=== PATIENT | female | born 1970 | race Caucasian/White ===

== ENCOUNTER 2019-09-10 12:56 | Inpatient (IN) | payer OTHER ==
[~2019-09-10] VITALS: Ht 152.4 cm; Wt 90.4 kg
--- NOTE | ~2019-09-10 | OR ---
[facility] [address] [place], [place] [address] Draft DATE OF OPERATION: 09/11/2019 SURGEON: Vic Ramirez MD PREOPERATIVE DIAGNOSES: 1. Intractable nausea and vomiting. 2. Acute cholecystitis. 3. Obesity and coincident persistent sinus bradycardia. POSTOPERATIVE DIAGNOSIS: Acalculous cholecystitis with severely hydropic gallbladder with extensive edema. PROCEDURES: 1. Laparoscopic cholecystectomy with intraoperative cholangiogram. 2. Surgeon-directed fluoroscopy. ANESTHESIA: General endotracheal; Vic Reynoso CRNA, and local 10 mL of 0.25% Marcaine with epinephrine. INDICATION: This 49-year-old obese white woman presented to the emergency room yesterday with intractable nausea and vomiting and some subcostal epigastric pain. She was thoroughly evaluated by Dr. Olmedo. The administration of antiemetic and opiates caused her to be bradycardic with a heart rate down to the 30s, largely related to her intractable retching. Ultimately, this was controlled, but her heart rate remains in the mid 40s and sinus bradycardia. A gallbladder ultrasound was performed showing no specific abnormality followed by a CT scan, which showed possible large gallstone in the gallbladder. Repeat ultrasound with a different unit continued to show no sign of gallstone, but she does clinically have acute cholecystitis manifest by pain and intractable nausea and vomiting. She has been fluid resuscitated, given intravenous antibiotics, parenteral pain medication, antiemetics, and so forth and is now to undergo cholecystectomy preferred by laparoscopic approach. Review of her bradycardic findings shows no evidence of coronary ischemia based on two separate troponin levels as well as a 12-lead EKG. Telemetry since yesterday has shown variable heart rate between 40 and 60, decreased in amount when retching or nauseated of course. PATIENT NAME: ZANA GARCIA OPERATIVE REPORT DATE OF : 70 REPORT #: [id number] PHYSICIAN: VIC RAMIREZ MD PCP: ISMAEL BOUCHER MD REPORT IS CONFIDENTIAL AND NOT TO BE RELEASED WITHOUT AUTHORIZATION [facility] [address] [place], [place] [address] Draft FINDINGS: The gallbladder was markedly edematous, inflamed, and hydropic. The liver was reasonably normal. By conclusion of operation, there was found to be no gallstone within the gallbladder. Cholangiogram was normal. There is no doubt she had severe acute acalculous cholecystitis. DESCRIPTION OF PROCEDURE: The patient was brought to the operating room, given a general endotracheal anesthetic without incident. Preoperative antibiotic Ancef had been given. Sequential compression device stockings used and heparin subcutaneously administered. The patient was given atropine by the furnace door tender prior to induction, which maintained her heart rate in the 70s to 80s throughout the operation. After satisfactory anesthesia, the abdomen was prepared with a chlorhexidine solution and draped sterilely. An infraumbilical incision was made and entry to the abdomen was undertaken through a very thick abdominal wall pannus. Pneumoperitoneum was achieved to a level of 14 mmHg of carbon dioxide gas. Intraabdominal inspection showed no sign of ascites or carcinomatosis. The gallbladder was quite markedly edematous and distended consistent with hydropic gallbladder. Three additional trocars were placed in usual configuration in the subxiphoid, right midclavicular, and right anterior axillary line. The gallbladder was elevated cephalad. Consideration was made for decompression of the gallbladder, but it was not required by the end. Using meticulous blunt electrocautery dissection, the triangle of STEVENSON dissected free ultimately identifying well the cystic duct itself. This was moderate to large in size. A clip was applied to the gallbladder cystic duct junction and a transverse choledochotomy made in the cystic duct. Retrograde milking of the duct showed some thickened bile, but no sign of stone or stone debris. Using an Rai-type cholangiocatheter, intraoperative cholangiography was undertaken showing free flow of contrast in biliary tree with prompt emptying into the duodenum. There was no sign of filling defect or other abnormality. The cystic duct was triply clipped and divided. The gallbladder was dissected free in a retrograde fashion using electrocautery. The gallbladder was placed in an endobag and extracted through the infraumbilical port site without problem, opened on the back table and found to have reasonably normal bile. No evidence of large stone and chronic and subacute inflammation mucosa itself. There was no sign of neoplasm. Irrigation was undertaken in subhepatic space. There was no sign of bile leak, bleeding, or other problems. The trocars were removed under direct visualization showing no bleeding. The infraumbilical incision was reapproximated in the fascial layer with interrupted 0 Vicryl suture, additionally secured with running 0 PDS suture. All wounds were copiously irrigated with saline solution. Skin closed with interrupted 3-0 Vicryl. Steri-Strips were applied. The patient was ultimately extubated and transferred to PATIENT NAME: ZANA GARCIA OPERATIVE REPORT DATE OF : 70 REPORT #: [id number] PHYSICIAN: VIC RAMIREZ MD PCP: ISMAEL BOUCHER MD REPORT IS CONFIDENTIAL AND NOT TO BE RELEASED WITHOUT AUTHORIZATION [address] [address] Draft recovery room in good condition having suffered no complication. Sponge, needle, and instrument counts were reported as correct x3. MD DRE Kaiser/ANGELOL /[id number] cc: MD Ismael Wilkerson MD William S. Powell, MD Copies: MURRAY SOLIZ MD, WILLIAM S MD ~ PATIENT NAME: ZANA GARCIA OPERATIVE REPORT DATE OF : 70 REPORT #: [id number] PHYSICIAN: VIC RAMIREZ MD PCP: ISMAEL BOUCHER MD REPORT IS CONFIDENTIAL AND NOT TO BE RELEASED WITHOUT AUTHORIZATION
[2019-09-10] MEDS ORDERED: CELEXA10 MG PO (13:13)
[2019-09-10] MEDS ORDERED: VITAMIN D33000 UNIT PO (13:14)
[2019-09-10] MEDS ORDERED: VITAMIN B122500 MCG PO (13:14)
--- NOTE | 2019-09-10 14:43 | EKG ---
[facility] [address] [facility] [place], [place] [address] Signed Sinus bradycardia with sinus arrhythmia Otherwise normal ECG No previous ECGs available Confirmed by SUN NINO MD ([id number]) on 09/10/2019 2:43:10 PM Electronically Signed By: SUN NINO MD 09/10/19 1443 PATIENT NAME: ZANA GARCIA Electrocardiogram DATE OF : 70 PHYSICIAN: SUN NINO MD REPORT #: [id number] REPORT IS CONFIDENTIAL AND NOT TO BE RELEASED WITHOUT AUTHORIZATION
--- NOTE | 2019-09-10 20:50 | NUR ---
pt ARRIVES TO MS FLOOR. HR 41. SINUS SHLOMO. ON TELE 6. pt NAUSEOUS, EMESIS X 1. BOWEL TONES ACTIVE. ABD SOFT, TENDER EPIGASTRIC AREA. AFEBRILE. NAUSEA MEDICATION HELD FOR LOW HR, DISCUSSED WITH MASONRY TEACHER RN IN ROOM AND DEAN FOR [facility]. pt EDUCATION PROVIDED. IVF BOLUS INFUSING WNL ORDERED. CALL LIGHT IN REACH. NO REQUESTS AT THIS TIME.
--- NOTE | 2019-09-10 22:26 | NUR ---
pt SLEEPING, AWAKENS TO VOICE FOR SCHEDULED MEDICATION ADMINISTRATION. IVF BOLUS COMPLETE. IVF INFUSING WNL ORDERED. SCDS PLACED ON pt. pt STATES "I FEEL A LITTLE BETTER". DENIES PAIN. MINIMAL NAUSEA. CALL LIGHT IN REACH. DENIES TOILETING NEEDS AT THIS TIME.
--- NOTE | 2019-09-11 00:39 | NUR ---
CHECKED ON pt. APPEARS TO BE SLEEPING. LYING ON LEFT SIDE WITH EYES CLOSED, BREATHING UNLABORED. LIGHTS OFF IN ROOM. SCDS ON.
--- NOTE | 2019-09-11 02:19 | NUR ---
V/S AND I&O TAKEN AND RECORDED BY PRIMARY LUCÍA MAYNARD.
--- NOTE | 2019-09-11 02:21 | NUR ---
pt AWAKE, VSS, HR 51. SINUS BRADYCARDIA ON TELE 6. pt DENIES PAIN. C/O "A LITTLE BIT OF NAUSEA". ASSESSMENT COMPLETE. BOWEL TONES HYPOACTIVE X 4, ABD SOFT, NON-TENDER W PALPATION. CALL LIGHT IN REACH. DENIES TOILETING OR ADDITIONAL NEEDS AT THIS TIME.
--- NOTE | 2019-09-11 02:39 | NUR ---
CALL LIGHT ANSWERED. pt NAUSEOUS, 50 ML GREEN EMESIS. pt PROVIDED WITH MOUTHWASH FOR ORAL CARE. NO ADDITIONAL REQUESTS. SCDS ON. IVF INFUSING WNL ORDERED.
--- NOTE | 2019-09-11 06:37 | NUR ---
pt RESTING IN BED ON LEFT SIDE, EYES CLOSED. AWAKENS TO VOICE, IV ANTIBIOTIC INFUSING WNL ORDERED. NO REQUESTS AT THIS TIME. CALL LIGHT IN REACH.
--- NOTE | 2019-09-11 07:10 | NUR ---
PT RESTING IN SEMIFOWLERS POSITION IN BED ALERT AND ORIENTED AND WATCHING TV. PT DENIES NEEDS OR CONCERNS. CALL LIGHT IN REACH. BEDSIDE REPORT RECEIVED FROM LUCÍA MAYNARD.
--- NOTE | 2019-09-11 08:56 | NUR ---
PT REPORTS NAUSEA AND IS SEEN WRETCHING. DISCUSSED MEDICATION OPTIONS WITH MD IN LIGHT OF PT'S BRADYCARDIA AND PER MD OKAY TO GIVE PHENERGAN SO PRN IV PHENERGAN ADMINISTERED AT THIS TIME ALONG WITH SCHEDULED MEDS. ASSESSMENT THEN COMPLETED ALONG WITH PREPROCEDURE CHECKLIST. PT ALSO PROVIDED CHLORHEXADINE WIPES AND VERBALIZED UNDERSTANDING OF WIPE DOWN INSTRUCTIONS. CALL LIGHT IN REACH. NO FURTHER NEEDS OR CONCERNS VOICED.
--- NOTE | 2019-09-11 09:45 | NUR ---
Spoke with Angie and her SO. They live in [place] with her sister, Jennifer and her father who has alzheimers. Jennifer is caring for father while angie is in the hospital. Pa works at [employer] parttime. Denies use of food bank or [employer]. Pa will have surgery today. Both deny need for any DME as she states she will use her fathers as he has everything. Plans on dc to home when discharged.
--- NOTE | 2019-09-11 10:31 | NUR ---
Pt off floor to OR in care of OR nurse.
--- NOTE | 2019-09-11 11:48 | NUR ---
PT REMAINS OFF OF MEDICAL-SURGICAL FLOOR AT THIS TIME.
--- NOTE | 2019-09-11 12:48 | NUR ---
09/11/19 1248 [place] 1227 PT ARRIVED IN PACU SLEEPY WITH NO C/O'S. 1230 COUGHING AND C/O DRY MOUTH. 1235 PT USING ORAL SWABS PRN. 1240 DR AT BEDSIDE. ALL QUESTIONS ANSWERED.
--- NOTE | 2019-09-11 13:20 | HP ---
[facility] [address] [place], [place] [address] Signed ADMISSION DATE: 09/10/2019 REASON FOR ADMISSION: Intractable upper abdominal pain, nausea, vomiting, and probable acute cholecystitis. HISTORY OF PRESENT ILLNESS: This 49-year-old white woman presented to the emergency room, was evaluated approximately at 1:[address] Saha. She complained with upper abdominal pain and nausea and vomiting that started an hour prior to her presentation. The patient has had numerous episodes of similar type over many years, which she had characterized as "gallbladder attacks." She has undergone evaluation of her gallbladder including ultrasound, which was apparently unremarkable in the past. Her pain is in the upper abdomen, radiating straight through her back with associated nausea and vomiting. Her other medical issues include no active ongoing medical problems otherwise. She is postmenopausal for past 5 years. She is a smoker, does not use alcohol or drugs. SURGICAL HISTORY: Includes hysterectomy in 2015, prior carpal tunnel release, and bunionectomy. ALLERGIES: She has presumed latex allergy. MEDICATIONS: At admission include citalopram (Celexa), vitamin D3, and vitamin B12. REVIEW OF SYSTEMS: She denies any shortness of breath or chest pain. Her pain is mostly in the epigastric and right subcostal area. Her nausea is increasingly controlled now by antiemetics. Of note, in the emergency room, the patient was treated initially with intravenous Dilaudid as well as antiemetics. This caused her to be significantly bradycardic and moderately hypotensive. It is thought by emergency room personnel including Dr. Saha that she was very sensitive to Dilaudid. She has been given Inapsine for her intractable nausea, which is improving. PHYSICAL EXAMINATION: GENERAL: Pleasant white woman, who appears to be in no severe distress at this time. This is an improvement compared to previously apparently. She is no longer retching. She is alert and oriented. HEENT: Mucous membranes are quite dry. Electronically Signed By: VIC RAMIREZ MD 09/11/19 1320 PATIENT NAME: ZANA GARCIA HISTORY AND PHYSICAL DATE OF : 70 REPORT #: [id number] PHYSICIAN: VIC RAMIREZ MD PCP: ATIF BOUCHER MD REPORT IS CONFIDENTIAL AND NOT TO BE RELEASED WITHOUT AUTHORIZATION [facility] [address] [place], [place] [address] Signed NECK: Shows no thyromegaly or cervical adenopathy. She has no sign of jaundice. Neck shows trachea midline. No jugular venous distention. CHEST: Clear. HEART: Regular without murmur. ABDOMEN: Obese. Palpation reveals tenderness in the epigastric and right subcostal area. EXTREMITIES: Show no clubbing, cyanosis, or edema. LABORATORY STUDIES: Showed a white count of 15.5, hematocrit 42.6, and platelets 418,000. Electrolytes normal. Creatinine 0.69. Troponin is less than 0.010. Bilirubin 0.4, AST 16, ALT 13, alkaline phosphatase 84. Ultrasound performed initially at [address] scan was subsequently performed showing suspicion for a large gallstone in the infundibulum. Repeat ultrasound with a different machine fails to show a shadowing gallstone. ASSESSMENT: Probable acute calculous cholecystitis. I have reviewed the CT scan and ultrasound images with the radiologist, Dr. Palomares, as well as the technologist. Clearly, there is no obvious stone on the ultrasound exams and CT scan does show a vague finding suggestive of a gallstone within the gallbladder, which is relatively large. Her clinical history is entirely consistent with acute calculous or acalculous cholecystitis. Notable indeed was her heart rate, which was in the 40s, though blood pressure in 131 range upon my evaluation. She had initially been given Toradol, Dilaudid, and Zofran. She had bradycardia as low as the upper 30s, considered sinus bradycardia on the monitor. Her baseline heart rhythm was low 60s, heart rate normal sinus rhythm. She was given Inapsine with much improvement regarding her intractable nausea. I discussed with her the high probability that her problem represents acute calculous cholecystitis and recommendation of treatment to include cholecystectomy. A laparoscopic approach would be preferred and probably able to be done. An open procedure is still a possibility depending on level of inflammation and so on. Review of the CT scan shows her to have a thick abdominal wall pannus consistent with her clinical examination. At this point, we will admit to the hospital, give IV fluids, parenteral pain medication, IV antibiotics and be mindful of her bradycardic episode related to medications and likely also related to her retching and so forth. Telemetry will be maintained. If her heart rate does not improve much, then consideration will be made for consultation with the hospitalist. She seems to be hemodynamically stable now, Electronically Signed By: VIC RAMIREZ MD 09/11/19 1320 PATIENT NAME: ZANA GARCIA HISTORY AND PHYSICAL DATE OF : 70 REPORT #: [id number] PHYSICIAN: VIC RAMIREZ MD PCP: ATIF BOUCHER MD REPORT IS CONFIDENTIAL AND NOT TO BE RELEASED WITHOUT AUTHORIZATION [address] [address] Signed though her heart rate remains in the 40s. MD DRE Kaiser/MODL /[id number] cc: Ben Saha MD Copies: BEN SAHA MD ~ Electronically Signed By: VIC RAMIREZ MD 09/11/19 1320 PATIENT NAME: ZANA GARCIA HISTORY AND PHYSICAL DATE OF : 70 REPORT #: [id number] PHYSICIAN: VIC RAMIREZ MD PCP: ATIF BOUCHER MD REPORT IS CONFIDENTIAL AND NOT TO BE RELEASED WITHOUT AUTHORIZATION
--- NOTE | 2019-09-11 13:27 | NUR ---
PT BACK TO FLOOR VIA HOSPITAL BED IN CARE OF PIERCING ARTIST. PT ASSESSMENT COMPLETED. VSS. LR INFUSING ORDERED. ICE CHIPS, H2O AND MENUE PROVIDED PER PT REQUEST. PT DENIES NEEDS OR CONCERNS. 4 LAP SITES VISUALIZED, SKIN APPEARS WELL APPROXIMATED WITH STERISTRIPS INTACT AND ONLY VERY SCANT SS DRAINAGE. CALL LIGHT IN REACH. NO FURTHER NEEDS OR CONCERNS VOICED.
--- NOTE | 2019-09-11 14:52 | NUR ---
PT RESTING IN SEMIFOWLERS POSITION IN BED ALERT AND ORIENTED. PT STATES "I'M DOING GREAT I FEEL SO MUCH BETTER" PT WATCHING TV AND IS VISITING WITH FAMILY AT BEDSIDE. CALL LIGHT AND H2O IN REACH.
--- NOTE | 2019-09-11 15:30 | NUR ---
PT RESTING IN SEMIFOWLERS POSITION IN BED ALERT AND ORIENTED. VOICED EAGERNESS TO DISCHARGE TODAY. CALL LIGHT AND H2O IN REACH. PT SATTING HIGH 90'S ON RA. PT STATES SHE IS COMFORTABLE AND DENIES FURTHER NEEDS OR CONCERNS.
[2019-09-11] MEDS ORDERED: TYLENOL EXTRA500 MG PO (16:17)
[2019-09-11] MEDS ORDERED: IBU600 MG PO (16:18)
--- NOTE | 2019-09-11 16:30 | NUR ---
PT RESTING IN SEMIFOWLERS POSITIO IN BED. PT ALERT AND WATCHING TV AND CONVERSING WITH BOYFRIEND. PT STATES PAIN IS TOLERABLE AND DENIES NAUSEA AFTER HAVING ICE CHIPS AND DRINKING GLASS OF H2O. NO NEEDS OR CONCERNS VOICED. CALL LIGHT IN REACH.
--- NOTE | 2019-09-12 11:15 | PATH ---
[facility] [address] [place], [place] [address] Signed SPECIMEN(S): A GALLBLADDER SPECIMEN SOURCE: A. GALLBLADDER CLINICAL HISTORY: Acute cholecystitis. FINAL PATHOLOGIC DIAGNOSIS: Gallbladder, cholecystectomy: - Chronic cholecystitis with features consistent with early acute cholecystitis. NAL:emb:C2NR MICROSCOPIC EXAMINATION: Histologic sections of all submitted blocks are examined by light microscopy. These findings, together with the gross examination, support the pathologic diagnosis. GROSS DESCRIPTION: The specimen, labeled "CE, A" and "gallbladder" on the requisition, is received in formalin and consists of Specimen: Previously opened gallbladder. Dimensions: 7 x 4 x 4 cm. Serosa: Nelson and smooth. Cystic Duct: Unobstructed. Calculi: Not present. Mucosa: Taveras to pale red and velvety. Wall thickness: 0.2 cm. Lymph node: No pericystic lymph nodes are grossly identified Additional: None. Brainer sections are submitted in cassette A1. SS (under the direct supervision of a pathologist) The Gross Description was prepared using a voice recognition system. The report was reviewed for accuracy; however, sound-alike word errors, addition and/or deletions may occur. If there is any question about this report, please contact Client Services. PERFORMING LABORATORY: The technical component was performed by [email or web address], [address] [place] [id number] (Sales Professional Bilingual: Janet De Jesus MD; CLIA# [id number]). PATIENT NAME: ZANA GARCIA MANASSAS PATHOLOGY DATE OF : 70 REPORT #: [id number] PHYSICIAN: PABLO LIZARRAGA PCP: ATIF BOUCHER MD REPORT IS CONFIDENTIAL AND NOT TO BE RELEASED WITHOUT AUTHORIZATION [facility] [address] [place], [place] [address] Signed [email or web address] [address] [place] [id number] (CLIA# [id number]). Diagnostician: Evie Nguyen MD Pathologist Electronically Signed 09/12/2019 Copies: ~ PATIENT NAME: ZANA GARCIA PATHOLOGY DATE OF : 70 REPORT #: [id number] PHYSICIAN: PABLO LIZARRAGA PCP: ATIF BOUCHER MD REPORT IS CONFIDENTIAL AND NOT TO BE RELEASED WITHOUT AUTHORIZATION
== END 2019-09-11 16:37 | disposition home or self-care (01) | DRG 418 ==
LOC: ED 12:56 → MS 19:18
PROVIDERS: ADMIT Surgery
PROC: 0FT44ZZ Resection of Gallbladder, Percutaneous Endoscopic Approach (ICD-10-PCS; principal; 2019-09-10)
PROC: BF10YZZ Fluoroscopy of Bile Ducts using Other Contrast (ICD-10-PCS; 2019-09-10)
DX: K81.0 Acute cholecystitis (principal); K82.1 Hydrops of gallbladder; E66.9 Obesity, unspecified; R00.1 Bradycardia, unspecified; Z79.899 Other long term (current) drug therapy; Z88.5 Allergy status to narcotic agent; Z91.040 Latex allergy status; Z87.891 Personal history of nicotine dependence; Z68.38 Body mass index [BMI] 38.0-38.9, adult
CPT/HCPCS: 00790; 36415; 74177; 74300; 76705; 80053; 81001; 83690; 84484; 85025; 93005; 93010; 94760; 96361; 99285-25; 99406; J0330; J0461; J0690; J1100; J1170; J1644; J1790; J1885; J2250; J2405; J2550; J2704; J2765; J3010; J7030; J7121; Q9967

== ENCOUNTER 2020-04-01 18:44 | Emergency (ER) | payer OTHER ==
[~2020-04-01] VITALS: Ht 152.4 cm; Wt 220.0 kg
--- OUTSIDE RECORDS SUMMARY | ~2020-04-01 | XMS | Encounter Summary ---
Demographics + + + | Address | [address] | | | [place] [address] | + + + | Home Phone | | + + + | Preferred Language | Unknown | + + + | Marital Status | Unknown | + + + | Jewish Affiliation | Unknown | + + + | Race | White | + + + | Ethnic Group | Not or | + + + Author + + + | Author | [facility] | | | and [place] | + + + | Organization | [facility] | | | and [place] | + + + | Address | Unknown | + + + | Phone | Unavailable | + + + Support + + +---------+ + | Name | Relationship | Address | Phone | + + +---------+ + | Melo Gilman | KASIE | Unknown | | + + +---------+ + Care Team Providers + +------+ + | Care Exchange Trouble Shooter Name | Role | Phone | + +------+ + | Ismael Tamez MD | PCP | | + +------+ + Encounter Details +--------+ + + + + | Date | Type | Department | Care Team | Description | +--------+ + + + + | 03/23/ | Abstract | [facility] [place] | [place], | | | 2019 | | NEUROSURGERY [address] | [address] | | | | | [address] | [place] | | | | | [place] | [place] [address] | | | | | [id number] | | | | | | [phone] | | | +--------+ + + + + Social History + +-------+ +--------+------+ | Tobacco Use | Types | Packs/Day | Years | Date | | | | | Used | | + +-------+ +--------+------+ | Current Every Day | | 1.5 | 20 | | | Smoker | | | | | + +-------+ +--------+------+ + + + + + | Alcohol Use | Drinks/Week | oz/Week | Comments | + + + + + | Yes | 4-5 Standard | 4.0 - 5.0 | Whiskey or Vodka | | | drinks or equivalent | | | + + + + + + + + + | Education | Answer | Date Recorded | + + + + | What is the highest level of school you | Associate degree: | 03/23/2020 | | have completed or the highest degree you | academic program | | | have received? | | | + + + + + + + | Sex Assigned at | Date Recorded | | | | + + + | Not on file | | + + + documented as of this encounter Plan of Treatment +--------+---------+ + + + | Date | Type | Specialty | Care Team | Description | +--------+---------+ + + + | 04/10/ | Office | Neurosurgery | Ben Haile | | | 2019 | Visit | | MD [address] | | | | | | [address] [facility] | | | | | | [place] | | | | | | [id number] | | | | | | | | +--------+---------+ + + + documented as of this encounter Visit Diagnoses Not on filedocumented in this encounter"
--- OUTSIDE RECORDS SUMMARY | ~2020-04-01 | XMS | Encounter Summary ---
Demographics + + + | Address | [address] | | | [place] [address] | + + + | Home Phone | | + + + | Preferred Language | Unknown | + + + | Marital Status | Unknown | + + + | Anglican Affiliation | Unknown | + + + | Race | White | + + + | Ethnic Group | Not or | + + + Author + + + | Author | [facility] | | | and [place] | + + + | Organization | [facility] | | | and [...] Team Providers + +------+ + | Care Animal Pathologist Name | Role | Phone | + +------+ + | Ismael Tamez MD | PCP | | + +------+ + Reason for Visit + + + | Reason | Comments | + + + | New Patient | low back pain | + + + Evaluate & Treat (Routine) + +--------+ + + + + | Status | Reason | Specialty | Diagnoses / | Referred By | Referred To | | | | | Procedures | Contact | Contact | + +--------+ + + + + | Authorized | | Neurosurgery | Diagnoses | Dashawn, | Lazara, | | | | | Other | MD Ismael | Ben | | | | | intervertebr | [address] | MD Иван | | | | | al disc | [place] | [address] | | | | | displacement | [address] | [address] | | | | | , lumbar | [place], | [place], | | | | | region | [place] [address] | [place] [address] | | | | | | Phone: | Phone: | | | | | | [phone] | [phone] | | | | | | Fax: | Fax: | | | | | | [phone] | [phone] | + +--------+ + + + + Encounter Details +--------+---------+ + + + | Date | Type | Department | Care Team | Description | +--------+---------+ + + + | 03/24/ | Office | [facility] | Song Bartlett, | RLD (ruptured lumbar | | 2020 | Visit | NEUROSURGERY [address] | PA-C [address] | disc) (Primary Dx); | | | | [address] [place] | Spinal stenosis of | | | | [place], [place] | [place] [address] | lumbar region with | | | | [phone] | [phone] | neurogenic | | | | [phone] | | claudication; Lumbar | | | | | | spondylosis | +--------+---------+ + + + Social History + + + +--------+------+ | Tobacco Use | Types | Packs/Day | Years | Date | | | | | Used | | + + + +--------+------+ | Current Every Day | Cigarettes | 1.5 | 20 | | | Smoker | | | | | + + + +--------+------+ + +---+---+---+ | Smokeless Tobacco: | | | | | Never Used | | | | + +---+---+---+ + + + + + | Alcohol [...] + + documented as of this encounter Last Filed Vital Signs + + + + + | Vital Sign | Reading | Time Taken | Comments | + + + + + | Blood Pressure | 142/90 | 03/24/2020 9:03 AM | | | | | PDT | | + + + + + | Pulse | 104 | 03/24/2020 9:03 AM | | | | | PDT | | + + + + + | Temperature | 36.4 C (97.5 F) | 03/24/2020 9:03 AM | | | | | PDT | | + + + + + | Respiratory Rate | 16 | 03/24/2020 9:03 AM | | | | | PDT | | + + + + + | Oxygen Saturation | 97% | 03/24/2020 9:03 AM | | | | | PDT | | + + + + + | Inhaled Oxygen | - | - | | | Concentration | | | | + + + + + | Weight | 99.1 kg (218 lb 7.6 | 03/24/2020 9:03 AM | | | | oz) | PDT | | + + + + + | Height | 152.4 cm (5') | 03/24/2020 9:03 AM | | | | | PDT | | + + + + + | Body Mass Index | 42.67 | 03/24/2020 9:03 AM | | | | | PDT | | + + + + + documented in this encounter Patient Instructions Patient Instructions Song Bartlett PA-C - 03/24/2020 8:30 AM PDTI am going to go delia sal and get you authorized for a L2-L3 laminectomy and discectomy. I am also going to recomme nd that you meet with your primary care doctor and have them do a risk stratification for yo ur upcoming surgery. While you are waiting to see Dr. Haile for your preop, please pay close attention to your edi wel patterns. If you develop a difficult time urinating and are struggling with urinary ret ention or if you have loss of bowels I would recommend that you call our office for further instruction. We will likely recommend that you go to the emergency room. Similarly, if you are wiping around the rectal or vaginal area and noticed significant numbness I would again recommend that you go to the emergency room. As much as possible, please cut down on your smoking between now and surgery. I have given you a prescription of gabapentin. I will start you on a low-dose; 100 mg. Yo u can take 1 tablet 3 times a day. In 5 days, if your pain is not well controlled you can t shanelle 2 tablets (200 mg) 3 times a day. In another 5 days, if you are still having significan t leg pain you can increase your intake to 3 tablets 3 times a day which would be equal to 3 00 mg 3 times a day. If you do this, please call our office and talk with Kya before doing so. documented in this encounter Progress Notes Song Bartlett PA-C - 03/24/2020 8:30 AM PDT Song Bartlett PA-C [address] [place] [address] FAX: [phone] NEUROSURGERY HISTORY AND PHYSICAL EXAMINATION CHIEF COMPLAINT: Chief Complaint Patient presents with New Patient low back pain HISTORY OF PRESENT ILLNESS: Robina Mccormick is a 49 y.o. female that was referred by her PCP Ismael Tamez MD due to lower back pain. She presents today with the complaint of back p ain for her whole life but had a thoracic back inkjury at work in 2006. Then in 2012 she was weeding and did a lot of bending over and had severe pain following this. Traditionally, it would act up 2-3 times a year and was tolerable with chorpractic treatment. She then took a trip to [place] last month and from that point till now it is the worst it has evere been and has not gotten better. Also this time she is having fairly sever leg symptoms. For the last month her back pain has been constant. Doing her normal simple daily activitie s her pain usually ranges from a 6-8/10. The character of the back pain is aching and edgardo naly is hot poker. Her legs bother her more than her back. Both legs are affected but the right is worse. Both feel equally weak. The right leg goes from her but to the lateral thigh and goes down the l ateral calf. Sometimes it goes into the foot. When it goes into her foot it affects the 3 la teral toes. The pain in her leg is much worse with walking but can be present with sitting. On her left leg it seems to be more the back of the thigh and is not as intense. She estimates she can walk about 7 minutes and then she has to take a break. It is her legs that prevent her from walking further. This limitation would be from both pain and weakness (50/50 equeal). Her symptoms improve with rest. Her symptoms worsen with walking and moderate exertion. She does not report any change in bowel or bladder function recently. She has tried nursing care attendant and although this has helped in the past it did not help th is time. She has not had PT and has not had any injections. She is on hydrocodone and flexer il. She only took them at night so they really did not help in the day. She has used mariaju oziel and has found one that has a CBD and this helps. She has also taken Naproxen and this ascencio s not helped. She has no neck pain. However, she does have tingling and numbness in both hands and this h as been stable for years and is treated successfully with nursing care attendant. She had gall bladder surgery in Aug and she had her gall bladder removed and report edly "almost ". During her stay in the ER they gave her dilaudid after a prolonged perio d of vomiting that she estimates lasted 19 hours. This caused her blood pressure dropped si gnificantly, and the staff reportedly went into a " code mode." PAST MEDICAL HISTORY: Past Medical History: Diagnosis Date Abnormal uterine bleeding Anxiety Arthritis Back pain Bulging lumbar disc L2-L3 Chronic back pain Depression Heart burn Hip pain History of heart murmur in childhood History of migraine Injury 2007 Lower back pain Neck pain Other intervertebral disc displacement, lumbar region PAST SURGICAL HISTORY: Past Surgical History: Procedure Laterality Date BREAST REDUCTION SURGERY Bilateral 1994 BUNIONECTOMY Left 1998 CARPAL TUNNEL RELEASE Bilateral 1992 CORNEA SURGERY Bilateral 2005 Reshaping HYSTERECTOMY 2012 CURRENT MEDICATIONS: Current Outpatient Medications Medication Sig Dispense Refill cholecalciferol (VITAMIN D-3) 50 mcg (2,000 units) tablet Take 50 mcg by mouth Daily. cyanocobalamin (VITAMIN B-12) 1,000 mcg tablet Take 1,000 mcg by mouth Daily. cyclobenzaprine (FLEXERIL) 10 mg tablet Take 5-10 mg by mouth nightly as needed. diazePAM (VALIUM) 5 mg tablet Take 5 mg by mouth every 8 hours as needed for Muscle spa sms. escitalopram (LEXAPRO) 20 mg tablet Take 20 mg by mouth Daily. fluticasone (FLONASE) 50 mcg/nasal spray 1 spray by Nasal route Daily. gabapentin (NEURONTIN) 100 mg capsule Take 1 capsule by mouth 3 times daily In 5 days y ou can take 2 tabs three times a day. If you want to increase to 3 tabs three times a day, kala ferguson call and talk to Kya.. 90 capsule 1 HYDROcodone-acetaminophen (NORCO) 5-325 mg per tablet Take 1-2 tablets by mouth every 8 hours as needed for Pain. loratadine (CLARITIN) 10 mg tablet Take 10 mg by mouth Daily. naproxen (NAPROSYN) 500 mg tablet Take 500 mg by mouth Twice daily as needed for Pain. No current facility-administered medications for this visit. ALLERGIES: Allergies Allergen Reactions Dilaudid [Hydromorphone] Other (See Comments) SEVERE heart rate decrease Latex Rash SOCIAL HISTORY: The patient reports that she has been smoking cigarettes. She has a 30.00 pack-year smokin g history. She has never used smokeless tobacco. She reports current alcohol use of about 4. 0 - 5.0 standard drinks of alcohol per week. She reports current drug use. Drug: Marijuana. FAMILY HISTORY: Family History Problem Relation Age of Onset Heart disease Mother Stroke Mother Heart disease Father Thyroid disease Sister Heart disease Brother Thyroid disease Brother Rheumatologic disease Brother No known problems Maternal Grandmother No known problems Maternal Grandfather No known problems Paternal Grandmother No known problems Paternal Grandfather Review of Systems Constitutional: Positive for malaise/fatigue. HENT: Negative. Eyes: Negative. Respiratory: Positive for cough. Cardiovascular: Positive for leg swelling (bilateral ankle swelling ). Gastrointestinal: Negative. Genitourinary: Negative. Musculoskeletal: Positive for back pain and joint pain. Skin: Negative. Neurological: Negative. Endo/Heme/Allergies: Negative. Psychiatric/Behavioral: Positive for depression. PHYSICAL EXAMINATION: Blood pressure 142/90, pulse 104, temperature 36.4 C (97.5 F), temperature source Tempo ral, resp. rate 16, height 1.524 m (5'), weight 99.1 kg (218 lb 7.6 oz), SpO2 97 %. Body mas s index is 42.67 kg/m. GENERAL: Robina Mccormick is in no acute distress with unlabored respirations. She does appea r comfortable throughout the exam today. HEENT: Head: Normocephalic/atraumatic with no areas of recent trauma. Eyes: Normal sclerae without icterus. Ears: No drainage or tenderness. Nasopharynx: Clear without drainage. Oropharynx: Clear without erythema. NECK (ANTERIOR): Supple and without palpable masses. CHEST: Clear to ausculation without crackles or wheeze. HEART: Regular rate and rhythm without murmurs. ABDOMEN: Soft, non-tender, non-distended, and without palpable masses. SPINE: There is no tenderness of her cervical spine but she does have tenderness in her tho racic spine The lumbar spine shows there is moderate tenderness in the midline of the lumbar spine at L 2-L3. To palpation, there is moderate right sided myofascial tenderness. There is no significant pain to provocative testing of the SI joint. There is no major deformity noted. EXTREMITIES: No cyanosis, clubbing, or edema. Distal pulses are palpable. NEUROLOGICAL EXAM: MENTAL STATUS: The patient is awake, alert, and oriented. She follows simple and complex commands. Her speech is fluent, she comprehends speech well, and she repeats well. She has no apparent deficits with short or senior living memory. CRANIAL NERVES: II: Acuity is intact. Gagnon are full to confrontation. III, IV, : The pupils are reactive. Extraocular movements are intact. No ptosis is note d. V: Facial sensation is intact and symmetric. VII: Facial movements are symmetric. VIII: Hearing is intact bilaterally. IX, X: The uvula and palate move appropriately. XI: Shrug is equal bilaterally. XII: Tongue protrusion is midline. MOTOR EXAM: (5 IS NORMAL) * Indicates pain limited MUSCLE/ MOVEMENT: RIGHT LEFT Hip Flexion 4+ 5 Hip Extension 5 5 Knee Flexion 4 4 Knee Extension 4+ 4+ Dorsiflexion 5 5 Extensor Hallicus Longus 5 5 Plantarflexion 5 5 SENSORY EXAM: Sensory exam shows diminished sensation to right calf. She also has decreased sensation to right anterior thigh and lateral thigh. REFLEXES: (2 OR 2+ IS NORMAL) REFLEX: RIGHT LEFT PATELLAR 2+ 2+ ACHILLES 2+ 2+ LANDAVERDE'S ABSENT ABSENT CLONUS ABSENT ABSENT BABINSKI DOWNGOING DOWNGOING GAIT: Gait is steady PERIPHERAL NERVE/MISC: Straight leg raise is negative bilaterally. Johnie's test of the hips is negative bilaterally. TEST AND RADIOGRAPHIC REVIEW: Her imaging was reviewed in detail today during the visit. The MRI from 03/10/2020 shows e ndplate changes at the L2-L3 interval with a mild Schmorl's node present. More concerning i s a fairly large disc bulge that causes severe spinal stenosis at this level. Lumbar x-rays from 02/27/2020 shows no major instability. There is significant loss of dis c height at L2-L3 with subchondral sclerosis. ASSESSMENT: NEUROSURGICAL DIAGNOSES: Encounter Diagnoses Name Primary? RLD (ruptured lumbar disc) Yes Spinal stenosis of lumbar region with neurogenic claudication Lumbar spondylosis GENERAL DIAGNOSES: Past Medical History: Diagnosis Date Abnormal uterine bleeding Anxiety Arthritis Back pain Bulging lumbar disc L2-L3 Chronic back pain Depression Heart burn Hip pain History of heart murmur in childhood History of migraine Injury 2006 Lower back pain Neck pain Other intervertebral disc displacement, lumbar region PLAN: Robina Mccormick presented today, and it was a pleasure seeing this patient and assessing her neurologic problems. The patient has severe spinal stenosis with claudication and radicular symptoms. The patie nt has progressive symptoms despite non-operative measures. I had a lengthy discussion with her about her options for care including surgical and non-s urgical options. In discussing the surgical options for the back, we discussed a TLIF at L2-L3. She understands that in most instances the recovery from surgery can be lengthy and sometim es difficult. Patient has been counseled about the importance of smoking cessation. In fac t, she is aware that commonly insurances will require that they quit smoking before a fusion can be done. I had talked to her about doing a discectomy. However, after reviewing her case with Dr. Veronica dowd, he feels that the broad-based disc bulge necessitates a wide decompression that would g et into the facet joints and thereby make her unstable. She would like to be considered for surgery as discussed and would like us to seek authoriz ation and clearance for the operation.. I would like this patient to follow up with Dr. Haile in The next 4 to 5 weeks for a preop e xamination. She does not have anybody to take care of her over the next 4 weeks and is [place] ng to get surgery at the end of March to mid April. Patient is aware of cauda equina symptoms and will call us should any of these develop. If this happens we may need to do he r surgery emergently. Song Bartlett PA-C 03/24/20 ELECTRONICALLY SIGNED BY: Song Bartlett PA-C, 03/24/2020 4:23 PM PDTElectronically sig sandra by Song Bartlett PA-C at 03/27/2020 8:28 AM PDTdocumented in this encounter Plan of Treatment +--------+---------+ + + + | Date | Type | Specialty | Care Team | Description | +--------+---------+ + + + | 04/10/ | Office | Neurosurgery | Ben Haile | | 2019 | Visit | | MD И[address] | | | | | | [place] [address] | | | | | | [place] | | | | | | [address] | | | | | | | | +--------+---------+ + + + documented as of this encounter Visit Diagnoses + + | Diagnosis | + + | RLD (ruptured lumbar disc) - Primary Displacement of lumbar intervertebral disc | | without myelopathy | + + | Spinal stenosis of lumbar region with neurogenic claudication Spinal stenosis, lumbar | | region, with neurogenic claudication | + + | Lumbar spondylosis Lumbosacral spondylosis without myelopathy | + + documented in this encounter
--- OUTSIDE RECORDS SUMMARY | ~2020-04-01 | XMS | Clinical Summary ---
Demographics + + + | Address | [address] [place] [address] St. | | | [place] [address] | + + + | Home Phone | | + + + | Preferred Language | Unknown | + + + | Marital Status | Unknown | + + + | Restorationist Affiliation | Unknown | + + + | Race | White | + + + | Ethnic Group | Not or | + + + Author + + + | Author | [facility] | | | and [place] | + + + | Organization | [facility] | | | and [...] Team Providers + +------+ + | Care Proctologist Name | Role | Phone | + +------+ + | Ismael Tamez MD | PCP | | + +------+ + Allergies + + + + + + | Active Allergy | Reactions | Severity | Noted | Comments | | | | | Date | | + + + + + + | Hydromorphone | Other (See Comments) | High | | SEVERE heart rate | | | | | | decrease | + + + + + + | Latex | Rash | Low | 05/20/20 | | | | | | 13 | | + + + + + + Medications + + + +---------+------+------+-------+ | Medication | Sig | Dispensed | Refills | Star | End | Statu | | | | | | t | Date | s | | | | | | Date | | | + + + +---------+------+------+-------+ | loratadine | Take 10 mg by mouth | | 0 | | | Activ | | (CLARITIN) 10 mg | Daily. | | | | | e | | tablet | | | | | | | + + + +---------+------+------+-------+ | cyclobenzaprine | Take 5-10 mg by | | 0 | | | Activ | | (FLEXERIL) 10 mg | mouth nightly as | | | | | e | | tablet | needed. | | | | | | + + + +---------+------+------+-------+ | diazePAM (VALIUM) | Take 5 mg by mouth | | 0 | | | Activ | | 5 mg tablet | every 8 hours as | | | | | e | | | needed for Muscle | | | | | | | | spasms. | | | | | | + + + +---------+------+------+-------+ | escitalopram | Take 20 mg by mouth | | 0 | | | Activ | | (LEXAPRO) 20 mg | Daily. | | | | | e | | tablet | | | | | | | + + + +---------+------+------+-------+ | | Take 1-2 tablets by | | 0 | | | Activ | | HYDROcodone-acetamin | mouth every 8 hours | | | | | e | | ophen (NORCO) 5-325 | as needed for Pain. | | | | | | | mg per tablet | | | | | | | + + + +---------+------+------+-------+ | naproxen | Take 500 mg by mouth | | 0 | | | Activ | | (NAPROSYN) 500 mg | Twice daily as | | | | | e | | tablet | needed for Pain. | | | | | | + + + +---------+------+------+-------+ | cyanocobalamin | Take 1,000 mcg by | | 0 | | | Activ | | (VITAMIN B-12) 1,000 | mouth Daily. | | | | | e | | mcg tablet | | | | | | | + + + +---------+------+------+-------+ | cholecalciferol | Take 50 mcg by mouth | | 0 | | | Activ | | (VITAMIN D-3) 50 mcg | Daily. | | | | | e | | (2,000 units) | | | | | | | | tablet | | | | | | | + + + +---------+------+------+-------+ | fluticasone | 1 spray by Nasal | | 0 | | | Activ | | (FLONASE) 50 | route Daily. | | | | | e | | mcg/nasal spray | | | | | | | + + + +---------+------+------+-------+ | gabapentin | Take 1 capsule by | 90 | 1 | 03/01 | | Activ | | (NEURONTIN) 100 mg | mouth 3 times daily | capsule | | 5/20 | | e | | capsule | In 5 days you can | | | 20 | | | | | take 2 tabs three | | | | | | | | times a day. If you | | | | | | | | want to increase to | | | | | | | | 3 tabs three times a | | | | | | | | day, please call | | | | | | | | and talk to . | | | | | | + + + +---------+------+------+-------+ | fluticasone | 1 spray by Nasal | | 0 | | 03/01 | Disco | | (FLONASE) 50 | route Daily. | | | | 4/20 | ntinu | | mcg/nasal spray | | | | | 20 | ed | | | | | | | | (Dupl | | | | | | | | icate | | | | | | | | | | | | | | | | Entry | | | | | | | | (no | | | | | | | | Cance | | | | | | | | l Rx | | | | | | | | msg)) | + + + +---------+------+------+-------+ Active Problems Not on file Encounters +--------+ + + + + | Date | Type | Specialty | Care Team | Description | +--------+ + + + + | 03/27/ | Orders Only | Neurosurgery | [facility] | RLD (ruptured lumbar | | 2019 | | | MD Иван | disc) (Primary Dx); | | | | | | Spinal stenosis of | | | | | | lumbar region with | | | | | | neurogenic | | | | | | claudication; Lumbar | | | | | | spondylosis | +--------+ + + + + | 03/26/ | Telephone | Neurosurgery | [facility] | Medical Clearance | 2019 | | | MD Иван | (NS med clearance | | | | | | for surgery) | +--------+ + + + + | 03/24/ | Office | Neurosurgery | Song Bartlett, | ANMD (ruptured lumbar | | 2019 | Visit | | PA-C | disc) (Primary Dx); | | | | | | Spinal stenosis of | | | | | | lumbar region with | | | | | | neurogenic | | | | | | claudication; Lumbar | | | | | | spondylosis | +--------+ + + + + | 03/23/ | Abstract | Neurosurgery | Francisco, | | | 2019 | | | MD Leah | | +--------+ + + + + | 03/17/ | Imaging | Radiology | Provider, | | | 2019 | Exam | | MD Leah | | +--------+ + + + + | 03/17/ | Imaging | Radiology | Provider, | | | 2020 | Exam | | Historical, MD | | +--------+ + + + + from Last 3 Months Family History + + +---------+ + | Medical History | Relation | Name | Comments | + + +---------+ + | Heart disease | Brother | | | + + +---------+ + | Rheumatologic | Brother | | | | disease | | | | + + +---------+ + | Thyroid disease | Brother | | | + + +---------+ + | Heart disease | Father | Roberto Carlos | | | | | Nair | | + + +---------+ + | No known problems | Maternal | | | | | Grandfath | | | | | er | | | + + +---------+ + | No known problems | Maternal | | | | | Grandmoth | | | | | er | | | + + +---------+ + | Heart disease | Mother | | | + + +---------+ + | Stroke | Mother | | | + + +---------+ + | No known problems | Paternal | | | | | Grandfath | | | | | er | | | + + +---------+ + | No known problems | Paternal | | | | | Grandmoth | | | | | er | | | + + +---------+ + | Thyroid disease | Sister | | | + + +---------+ + + +---------+--------+ + | Relation | Name | Status | Comments | + +---------+--------+ + | Brother | | | | + +---------+--------+ + | Father | Roberto Carlos | | | | | Nair | | | + +---------+--------+ + | Maternal Grandfather | | | | + +---------+--------+ + | Maternal Grandmother | | | | + +---------+--------+ + | Mother | | | | + +---------+--------+ + | Paternal Grandfather | | | | + +---------+--------+ + | Paternal Grandmother | | | | + +---------+--------+ + | Sister | | | | + +---------+--------+ + Social History + + + +--------+------+ [...] on file | | + + + Last Filed Vital Signs + + + [...] | | + + + + + Plan of Treatment +--------+---------+ + + + | Date | Type | Specialty | Care Team | Description | +--------+---------+ + + + | 04/10/ | Office | Neurosurgery | [facility] | | | 2019 | Visit | | MD Иван [address] | | | | | | [address] | | | | | | [place] | | | | | | [address] | | | | | | | | +--------+---------+ + + + + + +-------+ + | Health Maintenance | Due Date | Last | Comments | | | | Done | | + + +-------+ + | Hepatitis C | | | | | Screening | 1 | | | + + +-------+ + | Med Mgmt: BUN | | | | | | 1 | | | + + +-------+ + | Med Mgmt: Cr | | | | | | 1 | | | + + +-------+ + | Med Mgmt: Vit D | | | | | | 1 | | | + + +-------+ + | Med Mgmt: eGFR | | | | | | 1 | | | + + +-------+ + | Medication | | | | | Management | 1 | | | + + +-------+ + | Vaccine: | | | | | Pneumococcal 19-64 | 7 | | | | (1 of 1 - PPSV23) | | | | + + +-------+ + | Vaccine: | | | | | Dtap/Tdap/Td (1 - | 0 | | | | Tdap) | | | | + + +-------+ + | Cervical Cancer | | | | | Screening (Pap) | 1 | | | + + +-------+ + | Breast Cancer | | | | | Screening | 6 | | | + + +-------+ + | Vaccine: Influenza | | | | | (#1) | 0 | | | + + +-------+ + Procedures + +--------+ + + + | Procedure Name | Priori | Date/Time | Associated Diagnosis | Comments | | | ty | | | | + +--------+ + + + | MRI LUMBAR SPINE WO | Routin | 03/10/2020 | | Results for this | | CONTRAST | e | 12:00 AM | | procedure are in the | | | | PDT | | results section. | + +--------+ + + + | XR LUMBAR SPINE 4 + | Routin | 02/27/2020 | | Results for this | | VW | e | 12:00 AM | | procedure are in the | | | | PDT | | results section. | + +--------+ + + + from Last 3 Months Results MRI Lumbar Spine wo Contrast (03/10/2020 12:00 AM PDT) + + | Specimen | + + | | + + + + + | Narrative | Performed At | + + + | External films for comparison only | [facility] | | | | | No results will be in the chart. | | + + + + +---------+ + + | Performing | Address | City/State/Zipcode | Phone Number | | Organization | | | | + +---------+ + + | [facility] | | | | + +---------+ + + XR Lumbar Spine 4 + Vw (02/27/2020 12:00 AM PDT) + + | Specimen | + + | | + + + + + | Narrative | Performed At | + + + | External films for comparison only | [facility] | | | | | No results will be in the chart. | | + + + + +---------+ + + | Performing | Address | City/State/Zipcode | Phone Number | | Organization | | | | + +---------+ + + | [facility] | | | | + +---------+ + + from Last 3 Months Insurance +-------+--------+ +--------+ +---------+------+ | Payer | Benefi | Subscriber | Effect | Phone | Address | Type | | | t Plan | ID | socorro | | | | | | / | | Dates | | | | | | Group | | | | | | +-------+--------+ +--------+ +---------+------+ | GEHA | GEHA | [id number] | | [phone] | | PPO | | | [employer]ET[employer] | | 020-Pr | 6 | | | | | PPO | | esent | | | | +-------+--------+ +--------+ +---------+------+ + +--------+ +--------+ + + | Guarantor Name | Accoun | Relation to | Date | Phone | Billing Address | | | t Type | Patient | of | | | | | | | | | | + +--------+ +--------+ + + | Robina Mccormick | Person | Self [birth year] | [address] | | | al/Fam | | 1971 | [phone] | [place] [address] | | | mahin | | | 3 (Home) | | + +--------+ +--------+ + + | Robina Mccormick M | Person | Self | [birth year] | [address] | | | al/Fam | | 1970 | [phone] | [place] [address] | | | mahin | | | 3 (Home) | | + +--------+ +--------+ + + Advance Directives + + + + + | Type | Date Recorded | Patient | Explanation | | | | Chick Room Supervisor | | + + + + + | Power of | | | | | Facility Specialist | | | | + + + + + | Advance | | | | | Directive | | | | + + + + +"
--- OUTSIDE RECORDS SUMMARY | ~2020-04-01 | XMS | Encounter Summary ---
Demographics + + + | Address | [address] | | | [place] [address] | + + + | Home Phone | | + + + | Preferred Language | Unknown | + + + | Marital Status | Unknown | + + + | Methodist Affiliation | Unknown | + + + | Race | White | + + + | Ethnic Group | Not or | + + + Author + + + | Author | [facility] | | | and [place] | + + + | Organization | [facility] | | | [...] Team Providers + +------+ + | Care Safety Sealer Name | Role | Phone | + +------+ + | Ismael Tamez MD | PCP | | + +------+ + Reason for Visit + +--------+ + | Reason | Onset | Comments | | | Date | | + +--------+ + | Medical Clearance | 03/26/ | NS med clearance for surgery | | | 2020 | | + +--------+ + Encounter Details +--------+ + + + + | Date | Type | Department | Care Team | Description | +--------+ + + + + | 03/26/ | Telephone | [facility] | [facility] | Medical Clearance | | 2020 | | NEUROSURGERY [address] | MD Иван [address] | (NS med clearance | | | | [address] | [address] | for surgery) | | | | [place] | [place] | | | | | [address] | [address] | | | | | [phone] | | | +--------+ + + + + Social History + + [...] + + documented as of this encounter Miscellaneous Notes Telephone Encounter - Virginia Bowling RN - 03/26/2020 4:29 PM Praneeth Tamez MD's offic e calling to ask what was the proposed surgery and what type of anesthesia would be used as well as an anticipated surgery date. I let them know that we are going to submit for an L3-4 TLIF, with general sedation most breanna echevarria. At this time that we had not submitted yet and once it was submitted it would need to be sent to auth. I also let her know that currently we are booking 3-4 weeks out. She will contact the patient to schedule her for an appointment to gain medical clearance.E lectronically signed by Virginia Bowling RN at 03/26/2020 4:34 PM PDTdocumented in this encount er Plan of Treatment +--------+---------+ + + + | Date | Type | Specialty | Care Team | Description | +--------+---------+ + + + | 04/10/ | Office | Neurosurgery | [facility] | | 2019 | Visit | | MD Иван [address] | | | | | | [address] [facility] | | | | | | [place] | | | | | | [phone] | | | | | | | | +--------+---------+ + + + documented as of this encounter Visit Diagnoses Not on filedocumented in this encounter"
--- OUTSIDE RECORDS SUMMARY | ~2020-04-01 | XMS | Encounter Summary ---
Demographics + + + | Address | [address] | | | [place] [address] | + + + | Home Phone | | + + + | Preferred Language | Unknown | + + + | Marital Status | Unknown | + + + | Amish Affiliation | Unknown | + + + | Race | White | + + + | Ethnic Group | Not or | + + + Author + + + | Author | [facility] | | | and [place] | + + + | Organization | [facility] | | | and [...] Team Providers + +------+ + | Care Tractor Engine Assembler Name | Role | Phone | + +------+ + | Ismael Tamez MD | PCP | | + +------+ + Encounter Details +--------+ + + + + | Date | Type | Department | Care Team | Description | +--------+ + + + + | 03/17/ | Imaging | [facility] | Provider, | | | 2019 | Exam | [facility] | MD Leah [address] | | | | | IMAGING [address] | [place] | | | | | [address] | [place] [address] | | | | | [place] [address] | | | | | | [phone] | | | +--------+ + + + + Social History + +-------+ +--------+------+ | Tobacco Use | Types | Packs/Day | Years | Date | | | | | Used | | + +-------+ +--------+------+ | Never Assessed | | | | | + +-------+ +--------+------+ + + + | Sex Assigned at [...] | | | | | | [address] [facility] [address] | | | | | | [place] | | | | | | [address] | | | | | | | | +--------+---------+ + + + documented as of this encounter Procedures + +--------+ + + + | [...] section. | + +--------+ + + + documented in this encounter Results MRI Lumbar Spine wo Contrast (03/10/2020 [...] | | | + +---------+ + + documented in this encounter Visit Diagnoses Not on filedocumented in this encounter"
--- OUTSIDE RECORDS SUMMARY | ~2020-04-01 | XMS | Encounter Summary ---
Demographics + + + | Address | [address] | | | [place] [address] | + + + | Home Phone | | + + + | Preferred Language | Unknown | + + + | Marital Status | Unknown | + + + | Uatsdin Affiliation | Unknown | + + + | Race | White | + + + | Ethnic Group | Not or | + + + Author + + + | Author | [facility] | | | and [place] | + + + | Organization | [facility] | | | [...] Team Providers + +------+ + | Care Culled Fruit Packer Name | Role | Phone | + [...] | [address] | [place] [address] | | | | | [place] [address] | | | | | | [phone] | | | +--------+ + + + [...] | | | | | | [address] [facility] [address] | | | | | | [place] | | | | | | [address] | | | | | | | [...] + + documented in this encounter Results XR Lumbar Spine 4 + Vw (02/27/2020 [...]
--- OUTSIDE RECORDS SUMMARY | ~2020-04-01 | XMS | Encounter Summary ---
Demographics + + + | Address | [address] | | | [place] [address] | + + + | Home Phone | | + + + | Preferred Language | Unknown | + + + | Marital Status | Unknown | + + + | Zoroastrianism Affiliation | Unknown | + + + | Race | White | + + + | Ethnic Group | Not or | + + + Author + + + | Author | [facility] | | | and [place] | + + + | Organization | [facility] | | | and [...] Team Providers + +------+ + | Care Cardiology Nurse Practitioner Name | Role | Phone | + +------+ + | Ismael Tamez MD | PCP | | + +------+ + Encounter Details +--------+ + + + + | Date | Type | Department | Care Team | Description | +--------+ + + + + | 03/27/ | Orders Only | [facility] | [facility] | RLD (ruptured lumbar | | 2019 | | NEUROSURGERY [address] | MD Иван [address] | disc) (Primary Dx); | | | | [address] | [address] | Spinal stenosis of | | | | [place], [place] | [place], [place] | lumbar region with | | | | [address] | [address] | neurogenic | | | | [phone] | | claudication; Lumbar | | | | | | spondylosis | +--------+ + + + + Social [...] 4-5 Standard | 4.0 - 5.0 | Corneliusey or Jamarcusa | | | drinks or equivalent | [...] Neurosurgery | [facility] | | | 2020 | Visit | | MD Иван [address] | | | | | | [address] | | | | | | [place] | | | | | | [address] | | | | | | | [...] myelopathy | + + documented in this encounter"
[~2020-04-01 18:44] MED LIST: CELEXA10 MG PO; IBU600 MG PO; TYLENOL EXTRA500 MG PO; VITAMIN B122500 MCG PO; VITAMIN D33000 UNIT PO
--- OUTSIDE RECORDS SUMMARY | 2020-04-01 18:48 | XMS ---
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 [place] has no Care Guidelines for this patient. Mee VISIT COUNT (12 MO.) 2 HEBER José TOTAL 2 NOTE: Visits indicate total known visits. ED/C VISIT TRACKING (12 MO.) 04/01/2020 18:45 [facility] OR TYPE: Emergency COMPLAINT: - NAUSEA 09/10/2019 12:56 [facility] OR TYPE: Emergency COMPLAINT: - VOMITING INPATIENT VISIT TRACKING (12 MO.) 09/10/2019 19:18 [facility] OR TYPE: Medical Surgical COMPLAINT: - ACUTE CHOLECYSTITIS/BRADYCARDIA DIAGNOSES: - Allergy status to narcotic agent status - Acute cholecystitis - Obesity, unspecified - Hydrops of gallbladder - Other fpc (current) drug therapy - Hydrops of gallbladder - Other fpc (current) drug therapy - Personal history of nicotine dependence - Acute cholecystitis - Body mass index (BMI) 38.0-38.9, adult - Allergy status to narcotic agent status - Obesity, unspecified - Personal history of nicotine dependence - Latex allergy status - Bradycardia, unspecified - Body mass index (BMI) 38.0-38.9, adult - Latex allergy status - Upper abdominal pain, unspecified - Bradycardia, unspecified [email or web address]
== END 2020-04-01 22:13 | disposition home or self-care (01) ==
LOC: ED 18:44
DX: R11.2 Nausea with vomiting, unspecified (principal); F17.200 Nicotine dependence, unspecified, uncomplicated; Z88.5 Allergy status to narcotic agent; Z91.040 Latex allergy status; Z79.899 Other long term (current) drug therapy
CPT/HCPCS: 80053; 83690; 85025; 96361; 96374; 96375; 96376; 99284-25; J1200; J1630; J2060; J7030

== ENCOUNTER 2021-09-07 06:31 | Day surgery (SDC) | payer OTHER ==
--- NOTE | 2021-05-06 08:27 | NUR ---
PHONE CALL TO COMPLETE PRE-ADMIT OVER THE PHONE. WAS INFORMED BY PATIENT THAT HER INSURANCE DENIDED THE SURGERY. EXPLAINED THAT WE CAN WAIT TILL SHE TALKS WITH DOCTOR AND GO FROM THERE. PT STATES "IF MY INSURANCE WILL NOT PAY FOR IT I CAN'T"
--- NOTE | 2021-07-06 09:20 | NUR ---
PHONE CALL TO COMPLETE PHONE PRE-ADMIT, BUT NO ANSWERE AT THIS TIME.
[~2021-09-07] VITALS: Ht 152.4 cm; Wt 95.4 kg
[~2021-09-07 06:31] MED LIST changes: +BUSPIRONE HCL7.5 MG PO; +CLARITIN10 MG PO; +GABAPENTIN300 MG PO; +PRAMIPEXOLE0.125 MG PO; +TOPIRAMATE25 MG
--- NOTE | 2021-09-07 06:51 | NUR ---
RT COLLECTED RAPID COVID 19, RSV, AND FLU SWAB PER DR REQUEST USING IN HOUSE LAB WITH NO COMPLICATIONS AT THIS TIME.
--- NOTE | 2021-09-07 08:22 | NUR ---
PT ALERT, ORIENTED AND SUPPORTED BY HER SISTER RAHEEM. PT STATED THIS IS THE FOURTH TIME TRYING TO HAVE SURGERY. WEATHER, ILLNESS HAS ALL PLAYED A PART IN HAVING TO POSPONE, BUT TODAY IS THE DAY. BOTH SEEMED INFORMED, QUESTIONS ASKED WERE ANSWERED, PT REQUESED PRAYER, WILL FOLLOW NEEDED
--- NOTE | 2021-09-07 08:53 | NUR ---
09/07/21 0853 Lavinia Boone 0816 PATIENT UNRESPONSIVE TO PAIN. ORAL AIRWAY IN PLACE. ALSO REQUIRES JAW THRUST TO MAINTAIN PATENT AIRWAY. RESP EVEN AND UNLABORED, WITH SUPPORT, SATS 100% ON 6 LITERS.
--- NOTE | 2021-09-07 09:59 | NUR ---
0940/PT ARRIVES UNTIT VIA STRETCHER FROM PACU. DROWSY ON ARRIVAL BUT WAKES ON COMMAND AND ANSWERS QUESTIONS APPROPRIATELY. VSS. RESPIRATIONS UNLABORED ON ROOM AIR. NO DRAINAGE NARES NOTED. DENIES NAUSEA. MANAV PO INTAKE WELL. IV INFUSES ORDERED WNL. POC DISCUSSED AND PATIENT AGREEABLE. NO NEEDS VOICED. CALL LIGHT WITHIN REACHED.
--- NOTE | 2021-09-07 11:08 | NUR ---
1038/PT WAKES UPON STUDENT NURSE ARRIVAL. VSS. RESPIRATION EVEN AND UNLABORED. DENIES PAIN AND NAUSEA. JELLO AND WARM BLANKET PROVIDED AT REQUEST OF PT. PT MANAV PO INTAKE WELL. NO DRAINAGE NOTED FROM NARES. TO TRY TO VOID WITHIN NEXT 30 MINUTES. NO NEEDS VOICE. CALL LIGHT WITHIN REACH.
--- NOTE | 2021-09-07 11:27 | NUR ---
1115/PT DANGLED AT BED SIDE. MANAV WELL DENIES DIZINESS AND SOB. ABULATES TO BR WITH STAND BY ASSIST FROM THIS MANAGEMENT DEVELOPMENT SPECIALIST AND RN. UNABLE TO VOID AT THIS TIME. BACK TO STRETCHER. STEADY GATE. TO TRY TO VOID AGAIN SHORTLY. DISCUSSED WITH PT AND PT VOICES UNDERSTANDING. SCD IN PLACE. CALL LIGHT WITHIN REACH. SISTER AT BEDSIDE.
--- NOTE | 2021-09-07 12:29 | OR ---
[facility] [address] [place], [place] [address] Signed DATE OF OPERATION: 09/07/2021 SURGEON: Ton Arias MD LOCATION: [facility] Outpatient Surgery. PREOPERATIVE DIAGNOSIS: Nasal septal perforation. POSTOPERATIVE DIAGNOSIS: Nasal septal perforation. PROCEDURE: Biopsy of nasal septal perforation with placement of a septal button. ANESTHESIA: General LMA, Richard PATTERSON. PREOPERATIVE HISTORY: Zana is a 51-year-old lady with an idiopathic nasal septal perforation. This has been causing her discomfort, crusting, whistling. She is taken to the operating for the above-mentioned procedures. OPERATIVE PROCEDURE AND FINDINGS: After informed consent, the patient was taken to the operating room, placed in the supine position where general LMA anesthesia was induced. The patient and procedure were verified. The patient received preoperative intranasal oxymetazoline. Headlight speculum exam of the nasal cavity showed a relatively small anterior nasal septal perforation measured about 15 x 10 mm. Several biopsies from the edge were taken with the Ritu, sent to pathology in formalin. Minimal bleeding. Septal button 3 cm diameter was then fitted after trimming. Good closure and good coverage of the perforation. The nose and pharynx suctioned clear of blood and secretions. The patient was then awakened, extubated, and transported to recovery room in good condition. No complications. BLOOD LOSS: Minimal. SPECIMEN: Electronically Signed By: TON ARIAS MD 09/07/21 1229 PATIENT NAME: ZANA GARCIA SPOUT SPRING OPERATIVE REPORT DATE OF : 70 REPORT #: [id number] PHYSICIAN: TON ARIAS MD PCP: ATIF BOUCHER MD REPORT IS CONFIDENTIAL AND NOT TO BE RELEASED WITHOUT AUTHORIZATION [address] [place] [address] Signed To pathology. DRAINS: No drains. PROSTHESIS: Septal button. Ton Arias MD /ANGELOL /[id number] Copies: ~ Electronically Signed By: TON ARIAS MD 09/07/21 1229 PATIENT NAME: ZANA GARCIA OPERATIVE REPORT DATE OF : 70 REPORT #: [id number] PHYSICIAN: TON ARIAS MD PCP: ATIF BOUCHER MD REPORT IS CONFIDENTIAL AND NOT TO BE RELEASED WITHOUT AUTHORIZATION
--- NOTE | 2021-09-07 12:36 | NUR ---
1155/PT WAS AWAKE AND ORIENTED. DANGLED AT BEDSIDE AND THEN AMBULATES TO REST ROOM WITH ASSISTANCE FROM STUDENT NURSE SAMMY. WAS ABLE TO VOID 100. NO COMPLAINTS OF PAIN OR NAUSEA. VITALS WERE WNL. PT TO PREPARE FOR DISCHARGE. 1209/IV CATH DC' WITH WITH TIP INTACT. WNL.
--- NOTE | 2021-09-07 12:43 | NUR ---
1215: DC INSTRUCTIONS PROVIDED AND DISCUSSED. PT VOICES UNDERSTANDING AND DENIES QUESTIONS AND CONCERNS AT THIS TIME. WHEELED OFF OF UNIT FOR DC. TRANSFERS INTO VEHICLE INDEPENDENTLY AND APPROPRIATELY. NO PHYSICAL S/S OF DISTRESS AT THIS TIME
--- NOTE | 2021-09-10 13:11 | PATH ---
[facility] [address], [place] [address] Signed SPECIMEN(S): A SEPTAL BIOPSY SPECIMEN SOURCE: A. SEPTAL BIOPSY CLINICAL HISTORY: Pre: Nasal septal perforation, allergic rhinitis. FINAL PATHOLOGIC DIAGNOSIS: Nasal septum, biopsy: - Nasal and respiratory epithelium with acute and chronic inflammation and reactive epithelial changes. - Negative for fungal organisms by special stains (GMS). - See Comment. COMMENT: The microscopic slides display acanthotic squamous septal epithelium exhibiting hyperkeratosis, partial ulceration, and a prominent fibrinopurulent scale crust. The underlying connective tissue is scar-like in appearance and contains scattered hyperplastic sinonasal ducts and seromucous glands. Surface bacterial colonization is noted, highlighted by GMS special stain, with no fungal organisms identified (tissue controls react appropriately). Inspissated mucin with associated acute inflammation is also present. Of note, refractile foreign material is identified under polarized light, located predominantly within the mucin and focally within the fibrinopurulent ulcerated surface. The observed histologic features appear reactive in nature, with no histologic evidence of a neoplastic process identified. It is unknown if the refractile foreign material represents an etiologic factor in the septal perforation (versus an incidental finding and/or secondary to biopsy). Foreign material is not identified embedded within the tissue. No definitive features of granulomatosis with polyangiitis are seen (Aldo's granulomatosis), however if Aldo's is suspected clinically, appropriate serology may aid in confirmation of diagnosis. The surface bacteria is favored to represent secondary colonization, however if an infectious process is suspected, tissue culture may be warranted. This case was reviewed in consultation with Shellie Linn DDS, MS, Board Certified Oral and Maxillofacial Pathologist. PATIENT NAME: ZANA GARCIA PATHOLOGY DATE OF : 70 REPORT #: [id number] PHYSICIAN: PABLO PATHOLOGY PCP: ATIF BOUCHER MD REPORT IS CONFIDENTIAL AND NOT TO BE RELEASED WITHOUT AUTHORIZATION [facility] [address], [place] [address] Signed BRP:MLK:cml:C2NR MICROSCOPIC EXAMINATION: Histologic sections of all submitted blocks are examined by light microscopy. These findings, together with the gross examination, support the pathologic diagnosis. GROSS DESCRIPTION: The specimen, labeled "CE, A," and designated on the requisition "septal biopsy," is received in formalin and consists of eight fragments of pink-monroy soft tissue (0.2-0.8 cm in greatest dimension). The specimen is submitted entirely in cassette (A1). AC (under the direct supervision of a pathologist) The Gross Description was prepared using a voice recognition system. The report was reviewed for accuracy; however, sound-alike word errors, addition and/or deletions may occur. If there is any question about this report, please contact Client Services. PERFORMING LABORATORY: The technical component was performed by [facility], [address] [place] [id number] (Communications Controller: Janet De Jesus MD; CLIA# [id number]). [facility], [address] [address] (CLIA# [id number]). Diagnostician: Chivo Underwood MD Pathologist Electronically Signed 09/10/2021 Copies: ~ PATIENT NAME: ZANA GARCIA PATHOLOGY DATE OF : 70 REPORT #: [id number] PHYSICIAN: PABLO LIZARRAGA PCP: ATIF BOUCHER MD REPORT IS CONFIDENTIAL AND NOT TO BE RELEASED WITHOUT AUTHORIZATION
== END 2021-09-07 12:10 | disposition home or self-care (01) ==
LOC: OPS 06:31 → DS 06:31 → OPS 10:00
PROVIDERS: ATTEND Otolaryngology
PROC: 09HK0YZ Insertion of Other Device into Nasal Mucosa and Soft Tissue, Open Approach (ICD-10-PCS; 2021-09-07)
PROC: 09BM0ZX Excision of Nasal Septum, Open Approach, Diagnostic (ICD-10-PCS; principal; 2021-09-07 08:30)
DX: J34.89 Other specified disorders of nose and nasal sinuses (principal); J31.0 Chronic rhinitis; R06.83 Snoring; G25.81 Restless legs syndrome; Z20.822 Contact with and (suspected) exposure to COVID-19
CPT/HCPCS: 00160; C9803; J0330; J0461; J1100; J1885; J2250; J2405; J2704; J2765; J3010; J7121; U0003